=== PATIENT | female | born 1980 | race Caucasian/White ===

== ENCOUNTER 2018-05-31 09:30 | Emergency (ER) | payer BC ==
--- NOTE | 2018-05-31 09:46 | Emergency Department Record ---
History of Present Illness - General Chief complaint: Pain Stated complaint: PAINFUL JOINTS LEGS/ARMS/NECK Time Seen by Provider: 05/31/18 09:40 Source: Patient Mode of Arrival: Ambulatory Limitations: No limitations - History of Present Illness Initial comments: 37 yo female presents to ED for evaluation of diffuse joint pain affecting the knees, shoulders, and neck for the past 1 month. Patient denies fevers, chills , or cough symptoms. Patient denies recent injury. Patient has been taking Tylenol and Motrin as needed with improvement of her symptoms. Patient reports that her PCP has referred her to Rheumatology for further evaluation as well. MD Complaint: Joint pain Onset/Timin -: Month(s) Location: Other History of Same: Yes -: Yes Arthralgia Quality: Aching Consistency: Constant Improves with: Nothing Worsens with: Nothing Associated Symptoms: Denies other symptoms - Related Data Home Medications Medication Instructions Recorded Confirmed Last Taken Acetaminophen [Tylenol] 325 mg PO ASDIR 05/31/18 05/31/18 Unknown Bupropion HCl [Wellbutrin Sr] 150 mg PO DAILY 05/31/18 05/31/18 Unknown Ergocalciferol (Vitamin D2) 50,000 unit PO WEEKLY 05/31/18 05/31/18 Unknown [Vitamin D2] Ibuprofen 200 mg Tablet [Motrin 200 mg PO Q6H PRN 05/31/18 05/31/18 Unknown 200Mg] Minocycline HCl [Minocin] 50 mg PO BID 05/31/18 05/31/18 Unknown Allergies Allergy/AdvReac Type Severity Reaction Status Date / Time Sulfa (Sulfonamide Allergy RASH Verified 05/31/18 09:38 Antibiotics) clindamycin AdvReac VOMITING Verified 05/31/18 09:38 Travel Screening - Travel/Exposure Within Last 30 Days Have you traveled within the last 30 days?: No Review of Systems Constitutional: Denies: Chills, Fever, Malaise, Night sweats Eyes: Denies: Eye discharge, Eye pain ENT: Denies: Congestion, Ear pain, Epistaxis Respiratory: Denies: Cough, Dyspnea Cardiovascular: Denies: Chest pain, Dyspnea on exertion Endocrine: Denies: Fatigue, Heat or cold intolerance Gastrointestinal: Denies: Abdominal pain, Nausea, Vomiting Genitourinary: Denies: Incontinence, Retention Musculoskeletal: Reports: Arthralgia. Denies: Back pain, Gout, Joint swelling Skin: Denies: Bruising, Change in color Neurological: Denies: Abnormal gait, Confusion, Headache, Seizure Psychiatric: Denies: Anxiety Hematological/Lymphatic: Denies: Anemia, Blood Clots Past Medical History - SOCIAL HISTORY Smoking Status: Never smoker Alcohol Use: None Drug Use: None - RESPIRATORY Hx Respiratory Disorders: No - CARDIOVASCULAR Hx Cardio Disorders: No - NEURO Hx Neuro Disorders: No - GI Hx GI Disorders: No - Hx Genitourinary Disorders: No - ENDOCRINE Hx Endocrine Disorders: No - MUSCULOSKELETAL Hx Musculoskeletal Disorders: No - PSYCH Hx Psych Problems: Yes Hx Anxiety: Yes Hx Depression: Yes - HEMATOLOGY/ONCOLOGY Hx Hematology/Oncology Disorders: No Family Medical History Any Significant Family History?: No Physical Exam - General General Appearance: Alert, Oriented x3, Cooperative, Anxious Limitations: No limitations - Head Head exam: Atraumatic, Normocephalic, Normal inspection Head exam detail: negative: Abrasion, Contusion, Yadav's sign, General tenderness, Hematoma, Laceration - Eye Eye exam: Normal appearance. negative: Conjunctival injection, Periorbital swelling, Periorbital tenderness, Scleral icterus - ENT Ear exam: negative: Auricular hematoma, Auricular trauma Nasal Exam: negative: Active bleeding, Discharge, Dried blood, Foreign body Mouth exam: negative: Drooling, Laceration, Muffled voice, Tongue elevation - Neck Neck exam: Normal inspection. negative: Meningismus, Tenderness - Respiratory Respiratory exam: Normal lung sounds bilaterally. negative: Rales, Respiratory distress, Rhonchi, Stridor - Cardiovascular Cardiovascular Exam: Regular rate, Normal rhythm, Normal heart sounds - GI/Abdominal GI/Abdominal exam: Soft. negative: Rebound, Rigid, Tenderness - Rectal Rectal exam: Deferred - exam: Deferred - Extremities Extremities exam: Normal inspection, Full ROM. negative: Calf tenderness, Joint swelling, Pedal edema, Tenderness - Back Back exam: Denies: CVA tenderness (R), CVA tenderness (L) - Neurological Neurological exam: Alert, Normal gait, Oriented X3 - Psychiatric Psychiatric exam: Anxious, Normal mood - Skin Skin exam: Normal color. negative: Abrasion Type of lesion: negative: abrasion Course Vital Signs 05/31/18 09:33 Temperature 98.5 F Pulse Rate 93 H Respiratory 18 Rate Blood Pressure 131/110 Pulse Ox 97 - Reevaluation(s) Reevaluation #1: 05/31/18 09:46 MAPS reviewed: No prescriptions listed. Patient was seen and examined, reports diffuse arthralgias without fever. Patient reassured that her symptoms would not lead to . Patient has been referred to Rheumatology for further evaluation Reports Tylenol/Ibuprofen do improve her symptoms. No gross abnormalities of the joints on examination (no septic joint, effusions , instability, etc.) Patient appears stable for discharge without further ED evaluation with instructions to follow-up with Rheumatology as directed. Disposition Disposition: Discharge Clinical Impression: Arthralgia Qualifiers: Joint pain location: unspecified Qualified Code(s): M25.50 - Pain in unspecified joint Disposition: Home, Self-Care Condition: (2) Stable Instructions: Arthralgia (ED) Additional Instructions: Return to ED if your symptoms worsen or if you have any concerns. Continue Ibuprofen as directed. Follow-up with your family doctor in 3-5 days as directed. Forms: Patient Portal Access Time of Disposition: 09:46 Quality - Quality Measures Quality Measures: N/A - Blood Pressure Screening Does Patient Have Any of the Following: No Blood Pressure Classification: Hypertensive Reading Systolic Measurement: 131 Diastolic Measurement: 110 Screening for High Blood Pressure: < First Hypertensive BP, F/U Documented > [ G8950] First Hypertensive Follow-up Interventions: Referral to alternative/primary care provider.
== END 2018-05-31 10:01 | disposition home or self-care (01) ==
LOC: ER 09:30
DX: M54.2 Cervicalgia (principal); M25.562 Pain in left knee; M25.561 Pain in right knee; M25.512 Pain in left shoulder; M25.511 Pain in right shoulder
CPT/HCPCS: 99282

== ENCOUNTER 2018-12-18 10:01 | Emergency (ER) | payer BC ==
[2018-12-18] MEDS: KETOROLAC 30 MG/ML VIAL IM ONE (10:26)
[2018-12-18] MEDS: ORPHENADRINE CITRATE 60MG/2ML VIAL IM ONE (10:26)
--- NOTE | 2018-12-18 10:27 | Emergency Department Record ---
History of Present Illness - General Chief complaint: Pain Stated complaint: SCIATIC PAIN Time Seen by Provider: 12/18/18 10:09 Source: Patient Mode of Arrival: Ambulatory Limitations: No limitations - History of Present Illness Initial comments: The patient is here due to L lower back pain for 4 days. The patient describes the pain as as sharp and severe at times. It is located in the L lower back and intermittently radiates down the L leg. The pain is worse with walking. She has had no trauma, injury or incidents with lifting that could have precipitated the onset of the pain. The patient denies any hx of similar issues and has had no fever, leg numbness, weakness, or any new bowel or bladder issues. MD Complaint: Other Onset/Timin -: Days(s) Location: Left, Lower Leg History of Same: Yes Radiation: None Severity scale (1-10): 10 Quality: Sharp Consistency: Constant Improves with: Nothing Worsens with: Nothing Associated Symptoms: Denies other symptoms - Related Data Previous Rx's Medication Instructions Recorded Cyclobenzaprine HCl [Flexeril] 10 mg PO TID PRN #20 tablet 12/18/18 Methylprednisolone [Medrol Dose 4 mg PO DAILY #1 tab.ds.pk 12/18/18 Pack] Allergies Allergy/AdvReac Type Severity Reaction Status Date / Time Sulfa (Sulfonamide Allergy RASH Verified 05/31/18 09:38 Antibiotics) clindamycin AdvReac VOMITING Verified 05/31/18 09:38 Travel Screening - Travel/Exposure Within Last 30 Days Have you traveled within the last 30 days?: No Review of Systems Constitutional: Denies: Chills, Fever Eyes: Denies: Eye discharge ENT: Denies: Congestion Respiratory: Denies: Cough, Dyspnea Past Medical History - SOCIAL HISTORY Smoking Status: Never smoker - RESPIRATORY Hx Respiratory Disorders: No - CARDIOVASCULAR Hx Cardio Disorders: No - NEURO Hx Neuro Disorders: No - GI Hx GI Disorders: No - Hx Genitourinary Disorders: No - ENDOCRINE Hx Endocrine Disorders: No - MUSCULOSKELETAL Hx Musculoskeletal Disorders: No - PSYCH Hx Psych Problems: Yes Hx Anxiety: Yes Hx Depression: Yes - HEMATOLOGY/ONCOLOGY Hx Hematology/Oncology Disorders: No Family Medical History Any Significant Family History?: No Physical Exam - General General Appearance: Alert, Oriented x3, Cooperative, Mild distress (due to pain.) - Head Head exam: Atraumatic, Normocephalic - Eye Eye exam: Normal appearance, PERRL - Neck Neck exam: Normal inspection, Full ROM. negative: Tenderness - Respiratory Respiratory exam: Normal lung sounds bilaterally. negative: Respiratory distress - Cardiovascular Cardiovascular Exam: Regular rate, Normal rhythm, Normal heart sounds - GI/Abdominal GI/Abdominal exam: Soft, Normal bowel sounds. negative: Tenderness - Extremities Extremities exam: Normal inspection, Full ROM, Normal capillary refill, Other (Neg SLR bilaterally.). negative: Tenderness Image of Full Body: 1 - Area of pain and reproducible tenderness. - Back Back exam: Reports: Normal inspection, Paraspinal tenderness (There is reproducible tenderness to the L L3-5 paraspinal area.). Denies: Vertebral tenderness - Neurological Neurological exam: Alert, Normal gait, Oriented X3, Reflexes normal (The patetallar and achilles reflexes are 2+ and equal bilaterally.). negative: Abnormal gait, Motor sensory deficit - Psychiatric Psychiatric exam: Anxious Course Vital Signs 12/18/18 10:03 Temperature 99.1 F Pulse Rate 81 Respiratory 20 Rate Blood Pressure 155/89 Pulse Ox 97 - Reevaluation(s) Reevaluation #1: The patient is doing better at this time. The pain is significantly improved and she is able to get up and walk with very minimal discomfort. I did explain the need for F/U and if not better in 2-3 weeks she may need an MRI. She also is to return to the ER for any worsening pain, or any leg numbness, weakness or any bowel or bladder issues relating to incontinence or difficulty initiating a BM or urination. 12/18/18 11:49 Medical Decision Making - Data Complexity MDM Data: Labs Ordered and/or Reviewed, X-Ray Ordered and/or Reviewed - Lab Data Result diagrams: 12/18/18 10:25 12/18/18 10:25 - Radiology Data Radiology results: Report reviewed (Lumbar spine: mild DJD, O/W neg.) Disposition Disposition: Discharge Clinical Impression: Low back pain Qualifiers: Chronicity: acute Back pain laterality: left Sciatica presence: with sciatica Sciatica laterality: sciatica of left side Qualified Code(s): M54.42 - Lumbago with sciatica, left side Disposition: Home, Self-Care Condition: (2) Stable Instructions: Acute Low Back Pain (ED) Additional Instructions: Please continue your home Motrin and add the [facility], Medrol dose pack tomorrow and Flexeril as directed. Please see your family doctor later this week for recheck and return to the ER for any worsening pain, leg numbness, weakness, or any bowel or bladder issues. Prescriptions: Cyclobenzaprine HCl [Flexeril] 10 mg PO TID PRN #20 tablet PRN Reason: Pain Methylprednisolone [Medrol Dose Pack] 4 mg PO DAILY #1 tab.ds.pk Forms: Patient Portal Access Time of Disposition: 11:52 Quality - Quality Measures Quality Measures: N/A - Blood Pressure Screening View Details: Yes Does Patient Have Any of the Following: No Blood Pressure Classification: Hypertensive Reading Systolic Measurement: 135 Diastolic Measurement: 90 Screening for High Blood Pressure: < First Hypertensive BP, F/U Documented > [G8950] First Hypertensive Follow-up Interventions: Referral to alternative/primary care provider.
[2018-12-18 10:36] LABS: ABSOLUTE NEUTROPHIL COUNT 2.92; BASO % 0.2 % (0-6); EOS % 1.9 % (0-6); GRAN % 70.9 % (47-80); HEMATOCRIT 36.6 % (35.0-47.0); HEMOGLOBIN 12.5 gm/dl (11.6-16.0); LYMPH % 21.4 % (16-45); MEAN CELL VOLUME 83.6 fl (81-97); MEAN CORPUSCULAR HEMOGLOBIN 28.5 pg (27-33); MEAN CORPUSCULAR HGB CONC 34.2 g/dl (32-36); MEAN PLATELET VOLUME 9.8 fl (7.4-10.4); MONO % 5.6 % (0-9); PLATELET COUNT 122 K/uL (130-400); RED BLOOD COUNT 4.38 M/uL (3.80-5.40); RED CELL DISTRIBUTION WIDTH 13.2 % (11.5-14.5); WHITE BLOOD COUNT W/O DIFF 4.1 K/uL (4.2-12.2)
[2018-12-18 10:45] LABS: BLOOD UREA NITROGEN 12 mg/dL (6-20); CREATININE 0.8 mg/dL (0.5-0.9); EST GLOMERULAR FILTRATION RATE > 60 mL/min
[2018-12-18 10:48] LABS: GLUCOSE,RANDOM 101 mg/dL (74-109)
[2018-12-18] MEDS: METHYLPREDNISOLONE PF 125MG/VIAL IM ONE (11:58)
[2018-12-18] MEDS: HYDROCODONE/APAP 5/325MG TABLET PO ONE (11:58)
--- NOTE | 2018-12-19 18:54 | RADIOLOGY REPORT ---
EXAM: LUMBAR SPINE / AP LAT HISTORY: LOW BACK PAIN WITH RADIATION TO THE LEFT LEG FOR THE PAST FOUR DAYS. SHARP PAIN WITH MOTION. NO KNOWN INJURY. TECHNIQUE: AP, lateral, and lateral spot views of the lumbar spine were obtained. COMPARISON: None. FINDINGS: A transitional segment is present at the lumbosacral level. This is believed to represent S1. Five [id number] lumbar vertebral segments are also present. There is minor dextroconvex curvature within the lumbar spine. The lumbar intervertebral disc spaces and vertebral body heights are maintained. Minor facet arthropathy is present within the lower lumbar levels. There is no spondylolisthesis or acute compression fracture. IMPRESSION: 1. TRANSITIONAL SEGMENT AT THE S1 LEVEL WITH PARTIAL LUMBARIZATION. 2. MINOR DEXTROCONVEX CURVATURE. 3. NO ACUTE LUMBAR SPINE PATHOLOGY. JOB NUMBER: [id number] [facility]
== END 2018-12-18 12:32 | disposition home or self-care (01) ==
LOC: ER 10:01
DX: M54.42 Lumbago with sciatica, left side (principal)
CPT/HCPCS: 72100; 80048; 84703; 85025; 96372; 99283; J1885; J2360; J2930